=== PATIENT | female | born 1955 | race Caucasian/White ===

== ENCOUNTER 2024-07-30 18:55 | Inpatient (IN) | payer MEDICARE, BC ==
[2024-07-30] MEDS ORDERED: Ondansetron PF 4 MG/2 ML Vial IVP PRN (20:56)
[2024-07-30] MEDS ORDERED: Dextrose 5% in Water 1,000 ML IV PRN (20:56)
[2024-07-30] MEDS ORDERED: Ondansetron ODT 4 MG TAB PO PRN (20:56)
[2024-07-30] MEDS ORDERED: Dextrose 50% Abboject 50 ML SYRINGE SLOW IVP PRN (20:56)
[2024-07-30] MEDS ORDERED: Acetaminophen 650 MG Suppository PR PRN (20:56)
[2024-07-30] MEDS ORDERED: Calcium Carbonate 500 MG ChewTAB PO PRN (20:56)
[2024-07-30] MEDS ORDERED: Insulin Lispro 100 UNIT/ML 10 ML VIAL SC PRN (20:56)
[2024-07-30] MEDS ORDERED: Glucagon 1 MG/ML KIT IM PRN (20:56)
[2024-07-30] MEDS ORDERED: Senokot S 8.6-50 MG TAB PO PRN (20:56)
[2024-07-30 21:35] VITALS: BMI 43.9
[2024-07-30 22:22] LABS: Anion Gap 14 mmol/L (10-20); BUN (Urea Nitrogen) 12 mg/dL (9.8-20.1); Calc. Creatinine Clearance 100 mL/min (70-130); Calcium 8.2 mg/dL (7.8-10.44); Carbon Dioxide 24 mmol/L (23-31); Chloride 102 mmol/L (98-107); Estimated GFR 66; Glucose 164 mg/dL (80-115); Potassium 3.6 mmol/L (3.5-5.1); Sodium 136 mmol/L (136-145)
[2024-07-31] MEDS: Acetaminophen 325 MG TAB PO PRN (00:08)
[2024-07-31] MEDS: Melatonin 3 MG TAB PO PRN (00:08)
[2024-07-31] MEDS: Levothyroxine Sodium 75 MCG TAB PO SCH (05:31)
[2024-07-31 05:32] LABS: Anion Gap 13 mmol/L (10-20); BUN (Urea Nitrogen) 12 mg/dL (9.8-20.1); Calc. Creatinine Clearance 113 mL/min (70-130); Calcium 8.2 mg/dL (7.8-10.44); Carbon Dioxide 28 mmol/L (23-31); Chloride 102 mmol/L (98-107); Estimated GFR 77; Glucose 162 mg/dL (80-115); Potassium 2.7 mmol/L (3.5-5.1); Sodium 140 mmol/L (136-145)
[2024-07-31] MEDS: Insulin Lispro 100 UNIT/ML 10 ML VIAL SC PRN (05:54)
[2024-07-31 06:05] LABS: #Basophils Less than 0.03 10x3/uL (0.0-0.2); #Eosinophils Less than 0.03 10x3/uL (0.0-0.7); %Basophils 0.2 % (0.0-1.0); %Eosinophils 0.2 % (0.0-10.0); %Monocytes 11.7 % (0.0-10.0); %Neutrophils 81.6 % (42.0-75.0); Hematocrit 34.6 % (36.0-47.0); Hemoglobin 11.4 g/dL (12.0-16.0); Mean Corpuscular HGB CONC 32.9 g/dL (32.0-36.0); Mean Corpuscular Hemoglobin 27.7 pg (27.0-31.0); Mean Platelet Volume 10.9 fL (7.4-10.4); Platelet Count 117 10x3/uL (130-400); RBC Distribution Width 18.2 % (11.5-14.5); Red Blood Cell (RBC) Count 4.12 mill/uL (4.20-5.40)
[2024-07-31] MEDS: Ferrous Sulfate 325 MG TAB PO SCH (09:40)
[2024-07-31] MEDS: Loratadine 10 MG TAB PO PRN (09:42)
[2024-07-31] MEDS: LevoFLOXacin 750 mg/D5W 750 MG in Premix 1 BAG IVPB SCH (09:46)
[2024-07-31] MEDS: Potassium Chloride 20 MEQ TAB PO SCH ×2 (12:15→17:03)
[2024-07-31] MEDS: diphenhydrAMINE 25 MG CAP PO SCH (20:35)
[2024-08-01 06:35] LABS: #Basophils 0.03 10x3/uL (0.0-0.2); #Eosinophils Less than 0.03 10x3/uL (0.0-0.7); %Basophils 0.5 % (0.0-1.0); %Eosinophils 0.3 % (0.0-10.0); %Lymphocytes 9.4 % (21.0-51.0); %Monocytes 9.9 % (0.0-10.0); %Neutrophils 79.4 % (42.0-75.0); Hematocrit 35.7 % (36.0-47.0); Hemoglobin 11.7 g/dL (12.0-16.0); Mean Corpuscular HGB CONC 32.8 g/dL (32.0-36.0); Mean Corpuscular Hemoglobin 27.8 pg (27.0-31.0); Mean Corpuscular Volume 84.8 fL (78.0-98.0); Platelet Count 147 10x3/uL (130-400); RBC Distribution Width 18.2 % (11.5-14.5); Red Blood Cell (RBC) Count 4.21 mill/uL (4.20-5.40)
[2024-08-01 06:56] LABS: Anion Gap 12 mmol/L (10-20); BUN (Urea Nitrogen) 10 mg/dL (9.8-20.1); Calc. Creatinine Clearance 122 mL/min (70-130); Calcium 8.7 mg/dL (7.8-10.44); Carbon Dioxide 25 mmol/L (23-31); Chloride 104 mmol/L (98-107); Estimated GFR 84; Glucose 154 mg/dL (80-115); Potassium 3.2 mmol/L (3.5-5.1); Sodium 138 mmol/L (136-145)
[2024-08-01] MEDS ORDERED: FLU (Fluad Triv) TS24-25 (65UP)/MF59C/PF 45 MCG/0.5 ML Syringe IM ONE (09:00)
[2024-08-01] MEDS: metFORMIN 500 MG TAB PO SCH (09:34)
[2024-08-02] MEDS: LevoFLOXacin 750 MG TAB PO SCH (09:58)
[2024-08-02] MEDS: FLU (Fluad Triv) TS24-25 (65UP)/MF59C/PF 45 MCG/0.5 ML Syringe ONE (10:10)
[2024-08-02 12:49] VITALS: BP 147/74; TEMP 98.4
== END 2024-08-02 13:23 | disposition home or self-care (01) | DRG 872 ==
LOC: INTOOBSV 20:02 → MSONC 20:02 → OBSVTOIN 07-31 10:43 → SURG B 07-31 19:29
PROVIDERS: ADMIT Internal Medicine; ATTEND Family Medicine
DX: A41.51 Sepsis due to Escherichia coli [E. coli] (principal); N39.0 Urinary tract infection, site not specified; I10 Essential (primary) hypertension; E78.5 Hyperlipidemia, unspecified; E03.9 Hypothyroidism, unspecified; E11.9 Type 2 diabetes mellitus without complications; D50.9 Iron deficiency anemia, unspecified; G47.33 Obstructive sleep apnea (adult) (pediatric); E87.6 Hypokalemia; D69.6 Thrombocytopenia, unspecified; Z90.710 Acquired absence of both cervix and uterus
CPT/HCPCS: 36415; 36416; 80048; 83605; 85025; 90653; 96374; G0378; J1815; J1956